=== PATIENT | male | born 1985 | race Caucasian/White ===

== ENCOUNTER 2022-02-24 11:16 | Emergency (ER) | payer BC ==
[2022-02-24] MEDS ORDERED: Diphtheria,Pertussis(Acell),Tetanus Vaccine 0.5 ML Syringe IM ONE (12:30)
== END 2022-02-24 12:30 | disposition home or self-care (01) ==
LOC: FB.ED 11:16
DX: S61.211A Laceration without foreign body of left index finger without damage to nail, initial encounter (principal); Z23 Encounter for immunization; W30.9XXA Contact with unspecified agricultural machinery, initial encounter; Y99.0 Civilian activity done for income or pay
CPT/HCPCS: 12001; 73130-LT; 90471; 90715; 99281; 99283-25